=== PATIENT | female | born 1965 | race Caucasian/White ===

== ENCOUNTER → 2020-11-25 | Outpatient (CLI) | payer BC ==
[~2020-11-25] MED LIST: ACET1TAB33 PO; BUPIVACAINE MPF 0.25% 10 ML VIAL. ONE; methylPREDNISolone ACETATE 40 MG/ML VIAL. ONE
--- NOTE | 2020-11-25 11:39 | PDOC1 ---
INITIAL PAIN CONSULT DATE OF SERVICE: DOS: DATE: 11/25/20 TIME: 11:29 CHIEF COMPLAINT: Chief Complaint: Neck and left shoulder pain HISTORY OF PRESENT ILLNESS: 55-year-old female presents history of pain base the neck and left shoulder for about 4 months not the result of any specific injury or accident that she is aware of getting worse with time patient is recently seen a neurosurgeon who is recommending conservative treatment. Patient did have an MRI scan which we discussed with her today showing some degenerative disc space and height loss at C4-5 C5-6 and C6-7 without mass-effect on the cord and bilateral moderate facet degenerative changes at C5-6. Patient reports the pain is been there getting worse limited motion to the left side with rotation of her neck also lifting items of the left arm is coming more difficult and fatiguing difficulty sleeping as well secondary to the pain awakens her from sleep least once or twice a night. Patient is taking Tylenol 3 which is not been successfully decreasing the pain has had no formal therapy at this time is using massage techniques and heat applications which are only mildly helping patient rates her disability rating 0-10 10 being the worst is a 5 with recreation and occupation 3 with family home responsibilities for with social activity and sexual behavior 1 with self-care and 0 with life support activities. Patient reports headaches consistent with the pain in her neck as well especially with turning to the left side. Patient reports no dizziness no photophobia. PAST MEDICAL HISTORY: PMH: Cigarette smoking kidney stones previous pregnancies PREVIOUS SURGERIES: Past Surgical Hx: Bariatric surgery, total abdominal hysterectomy, lithotripsy CURRENT MEDICATIONS: Current Meds: Active Scripts Medications Dose Route/Sig Max Daily Dose Days Date Category Acetaminophen-Cod #3 Tablet (Acetaminophen/Codeine Phosphate) 1 Each Tablet 1 Tab PO PRN Q6HRS PRN 11/25/20 Reported ALLERGIES; Allergies: Coded Allergies: Sulfa (Sulfonamide Antibiotics) (Verified Allergy, Unknown, Unknown, 11/25/20) FAMILY HISTORY: Family Hx: Stroke, cerebral hemorrhages SOCIAL HISTORY: Social Hx: Patient drinks alcohol only rarely quit smoking many years ago not use any illeg al illicit or recreational drugs is lives with her spouse is locally in [facility] REVIEW OF SYSTEMS: ROS: Positive for those items mentioned in history of present illness, all systems are reviewed, otherwise negative ,and are complete full and well-documented on patient's chart. PHYSICAL EXAM: VS: Blood pressure is 157/87 pulse 57 respirations 18 temperature 97.7 F height is 5 foot 1 inch weight is 177 pounds PE: PHYSICAL EXAMINATION: GENERAL: The patient is awake, alert, oriented, appropriate, very pleasant in demeanor HEENT: Shows normocephalic, atraumatic. Extraocular movements are intact and symmetrical. Oral cavity: Mucous membranes moist and pink. Dentition is intact. NECK: Shows anterior throat supple without palpable lymphadenopathy noted. Swallow reflex symmetrical. CHEST: Shows normal on inspection. Breath sounds are clear bilaterally, no rales or rhonchi. HEART: Shows S1, S2 clear. No murmurs auscultated. ABDOMEN: Soft, nontender, nondistended, obese. BACK: Shows spine grossly in the midline. Normal-appearing cervical lordotic curvature. Cervical paraspinous muscles show symmetrical with inspection on palpation some very firm ropelike musculature in the left upper middle and lower distribution the paraspinous musculature also into the left trapezius and the la teral trapezius and into the left superior rhomboid with very firm ropelike musculature throughout very tender consistent with areas of trigger point musculature but without specific radiation on palpation. Patient shows good rotation of motion cervical spine but very tender with rotating past 45 degrees to the left right-sided rotated past 90 degrees without significant difficulty also full extension full forward flexion with some moderate pain reported with all these maneuvers on the left side only without radiation. There is slightly increased thoracic kyphosis, some minor flattening of the lumbar lordotic curvature. EXTREMITIES: Upper extremities show deep tendon reflexes 2+ in the biceps and triceps tendons. Motor exam is 5 on a scale of 5 with right circus trainer, biceps and triceps flexion and 5/5 on the left. Peripheral pulses are 2+ radial. No peripheral edema is noted bilaterally. Upper extremities are warm and dry to touch, equal in color and appearance. SKIN: Shows warm and dry, good turgor. No edema. No sores, rashes or bruising throughout. IMPRESSION: Impression: 55-year-old female with approximate 4-month history of pain base of the skull and neck and left shoulder MRI scan cervical spine as noted History of cigarette smoking Plan: Options were discussed with patient including conservative medical management physical therapies interventional techniques. Patient like to pursue interventional techniques. We discussed trigger point injections using description as well as anatomical models to describe the procedure. Risk discussed including but not limited to bleeding infection possibility of intravascular injection sequelae spread local anesthetic numbness side effects steroid medication portals regarding pain control. Patient understands and wished to proceed. Patient return to clinic in approximately 4 weeks for follow-up, was counseled as return appointment active level and side effects to be aware of. Patient sitting position under sterile prep and drape left musculature was identified in the cervical paraspinous musculature trapezius muscular and left rhomboid musculature trigger point areas were identified and using a 25-gauge needle were injected after negative aspiration each injection site total of 8 cc 0.25% bupivacaine and 40 mg Depo-Medrol. Patient tolerated the procedure well and had no complications. DONNA ARAYA MD Nov 25, 2020 11:39
--- NOTE | 2020-11-25 11:40 | PDOC4 ---
Procedure Note: Procedure Note: Patient was consented for trigger point injections. Risk were discussed including but not limited to bleeding infection possibility of intravascular injection sequelae spread local anesthetic and numbness side effects of steroid medication and portals regarding pain control. Patient understands wished to proceed. Patient sitting position under sterile prep and drape left musculature was identified in the cervical paraspinous musculature trapezius muscular and left rhomboid musculature trigger point areas were identified and using a 25-gauge needle were injected after negative aspiration each injection site total of 8 cc 0.25% bupivacaine and 40 mg Depo-Medrol. Patient tolerated the procedure well and had no complications. DONNA ARAYA MD Nov 25, 2020 11:40
== END | disposition home or self-care (01) ==
LOC: PNCL 10:00
PROVIDERS: ATTEND Anesthesiology
DX: M54.2 Cervicalgia (principal); M25.512 Pain in left shoulder; M79.18 Myalgia, other site; Z88.2 Allergy status to sulfonamides; Z79.899 Other long term (current) drug therapy; Z87.891 Personal history of nicotine dependence; Z90.710 Acquired absence of both cervix and uterus; Z98.890 Other specified postprocedural states; Z82.49 Family history of ischemic heart disease and other diseases of the circulatory system
CPT/HCPCS: 20552; J1030; J3490; 20553